=== PATIENT | female | born 1995 | race Caucasian/White ===

== ENCOUNTER 2024-02-11 15:14 | Outpatient (CLI) | payer SELFPAY ==
[~2024-02-11] VITALS: Ht 162.6 cm; Wt 80.7 kg
[2024-02-11 15:48] VITALS: BP 128/59
== END 2024-02-11 16:30 | disposition home or self-care (01) ==
LOC: M LDO 15:14
PROVIDERS: ATTEND Advanced Practice Midwife
DX: O47.03 False labor before 37 completed weeks of gestation, third trimester (principal); Z3A.35 35 weeks gestation of pregnancy
CPT/HCPCS: 59025; 87081; G0463